=== PATIENT | female | born 1965 | race Asian ===

== ENCOUNTER 2019-03-10 11:52 | Emergency (ER) | payer SELFPAY ==
[~2019-03-10] VITALS: Ht 167.6 cm; Wt 74.8 kg
[2019-03-10] MEDS ORDERED: NKM (12:02)
--- NOTE | 2019-03-10 12:02 | NUR ---
ED Nurse Note: Pt came into the ER s/p falling in the bathtub last night and twisting her right ankle. Right ankle noted to be swollen, bruised, and pt unable to move it. Pt is complaining of 10/10 pain in the area. Non radiating. Pt is A + O x4. Skin warm to touch.
--- NOTE | 2019-03-10 12:15 | Emergency Room Report ---
History of Present Illness General Chief Complaint: Lower Extremity Injury Source: Patient Present Illness HPI 53-year-old female presents to the emergency department complaining of 10 out of 10 in severity pain, swelling, tenderness and bruising to the right foot status post mechanical slip and fall from bathtub last night. Patient denies hitting her head or having a loss of consciousness. Patient denies midline neck or back pain. Reports her pain is exacerbated on attempts to weight-bear ambulate and states she has some minimal relief with rest. Patient denies open wounds, bleeding, or previous injury to this extremity. She denies paresthesias , or loss of gross motor movements of the affected extremity. Allergies: Coded Allergies: No Known Allergies (Unverified , 03/10/19) Patient History Past Medical History: see triage record Past Surgical History: none Pertinent Family History: none Now: No Reviewed Nursing Documentation: PMH: Agreed; PSxH: Agreed Nursing Documentation-PMH Past Medical History: No History, Except For Review of Systems All Other Systems: negative except mentioned in HPI Physical Exam Vital Signs Date Time Temp Pulse Resp B/P (MAP) Pulse Ox O2 Delivery O2 Flow Rate FiO2 03/10/19 11:59 98.4 78 15 139/88 95 Room Air Sp02 EP Interpretation: reviewed, normal General Appearance: no apparent distress, alert, GCS 15, non-toxic Head: normocephalic, atraumatic Eyes: bilateral eye normal inspection, bilateral eye PERRL ENT: hearing grossly normal, normal voice Neck: full range of motion Respiratory: lungs clear, normal breath sounds, speaking full sentences Cardiovascular #1: regular rate, rhythm, normal capillary refill Cardiovascular #2: 2+ dorsalis pedis (R) Musculoskeletal: back normal, normal range of motion, swelling, other - bruising right foot, tender - dorsum of the right foot. Neurologic: alert, oriented x3, responsive, motor strength/tone normal, sensory intact, speech normal, grossly normal Psychiatric: judgement/insight normal Skin: no rash, warm/dry, well hydrated, other - bruising on the right foot. Medical Decision Making PA Attestation Dr. acuña is my supervising Physician whom patient management has been discussed with. Diagnostic Impression: Primary Impression: Metatarsal fracture Qualified Codes: S92.324A - Nondisplaced fracture of second metatarsal bone, right foot, initial encounter for closed fracture ER Course 53-year-old female presents to the emergency department complaining of 10 out of 10 in severity pain, swelling, tenderness and bruising to the right foot status post mechanical slip and fall from bathtub last night. Patient denies hitting her head or having a loss of consciousness. Patient denies midline neck or back pain. Reports her pain is exacerbated on attempts to weight-bear ambulate and states she has some minimal relief with rest. Patient denies open wounds, bleeding, or previous injury to this extremity. She denies paresthesias , or loss of gross motor movements of the affected extremity. Ddx considered but are not limited to Fracture, dislocation, contusion, Sprain/ Strain/Spasm just to name a few. Vital signs: are WNL, pt. is afebrile H&PE are most consistent with musculoskeletal injury will perform imaging to r/ o fractures/dislocations. ORDERS: - X-ray Right Foot 3 views - POSITIVE FOR Metarsal fx's of the 2nd and 3rd toes. No Dislocation, or significant soft tissue injury, per preliminary read in ED, and signed by FINA Eaton, my supervising physician has reviewed, and agrees with my interpretation. ED INTERVENTIONS: -Pt. declines pain meds at this time. - -Patient is provided with crutches and instructed on their use - Short leg Posterior Splint applied to the right foot by shop technician. Pt. remains neurovascularly intact. --Pt. stable for outpatient follow up and is given Orthopedic referral. DISCHARGE: At this time pt. is stable for d/c to home. Will provide printed patient care instructions, and any necessary prescriptions. Care plan and follow up instructions have been discussed with the patient prior to discharge. Other X-Ray Diagnostic Results Other X-Ray Diagnostic Results : X-Ray ordered: Right Foot # of Views/Limited Vs Complete: 3 View Indication: Pain EP Interpretation: Yes FINA Xray: Interpretation reviewed, by supervising MD, and agrees with findings. Interpretation: no dislocation, no soft tissue swelling, other - 2nd and 3rd metatarsal fx's. Impression: Other - abnormal Electronically Signed by: Rukhsana Eaton PA-C Last Vital Signs Date Time Temp Pulse Resp B/P (MAP) Pulse Ox O2 Delivery O2 Flow Rate FiO2 03/10/19 11:59 98.4 78 15 139/88 95 Room Air Status: improved Disposition: HOME, SELF-CARE Condition: Stable Scripts Ibuprofen* (MOTRIN*) 600 Mg Tablet 600 MG ORAL THREE TIMES A DAY, #30 TAB 0 Refills Prov: Rukhsana Eaton 03/10/19 Hydrocodone Bit/Acetaminophen 5-325* (NORCO 5-325*) 1 Each Tablet 1 TAB ORAL Q6H PRN for For Pain, #15 TAB 0 Refills Prov: Rukhsana Eaton 03/10/19 Patient Instructions: Metatarsal Fracture Additional Instructions: Take medications as directed. Follow up with an SAFETY TRAINER in 3-5 days, even if your symptoms have resolved. If symptoms persist MRI may be required at the discretion of your PCP or Ortho Specialist. --Please review list of primary care clinics, if you do not already have a primary care provider who can give you an Orthopedic Referral. Return sooner to ED if new symptoms occur, or current symptoms become worse. Do not drink alcohol, drive, or operate heavy machinery while taking [place] as this may cause drowsiness. - Please note that this Emergency Department Report was dictated using [employer] shredding machine loader technology software, occasionally this can lead to erroneous entry secondary to interpretation by the dictation equipment. Ruhksana Eaton Mar 10, 2019 12:15
--- NOTE | 2019-03-10 12:16 | NUR ---
ED Nurse Note: Notified radiology of xray order.
--- NOTE | 2019-03-10 12:24 | NUR ---
ED Nurse Note: Xray at the bedside.
[2019-03-10] MEDS ORDERED: IBUPROFEN600 MG ORAL (13:27)
[2019-03-10] MEDS ORDERED: NORCO 5-325 TA1 EACH ORAL (13:27)
--- NOTE | 2019-03-10 13:30 | NUR ---
ED Nurse Note: CRUTCHES PROVIDED FOR PT. PT EDUCATED ON PROPER USE OF ASSISTIVE DEVICE. PT ABLE DEMONSTRATE AMBULATION WITH PROPER USE OF CRUTCHES.
--- NOTE | 2019-03-10 13:33 | NUR ---
ED Nurse Note: RADIOLOGY AWARE TO BRING COPY OF CD IMAGES TO PT PRIOR TO DC.
--- NOTE | 2019-03-10 13:54 | Diagnostic Imaging Report ---
Indication: Right foot pain Technique: 3 views right foot Comparison: none Findings: There are degenerative changes of the first metatarsophalangeal joint. There is a fracture of the proximal second metatarsal and probably of the third metatarsal. These fractures are nondisplaced. No other acute fractures. No dislocations. Impression: Positive for nondisplaced fractures of the proximal second and third metatarsals. Findings discussed by phone with Rukhsana Eaton in the emergency room at the time of interpretation
[2019-03-10 13:59] VITALS: BP 135/87
--- NOTE | 2019-03-10 14:00 | NUR ---
ED Nurse Note: CD of xray provided for pt.
--- NOTE | 2019-03-10 14:00 | NUR ---
ER DISCHARGE NOTE: Patient is cleared to be discharged per ERMD, pt is aox4, on room air, with stable vital signs. pt was given dc and prescription instructions, pt was able to verbalize understanding, pt id band removed without complications. pt is able to ambulate with steady gait. pt took all belongings.
== END 2019-03-10 14:00 | disposition home or self-care (01) ==
LOC: EMR 12:45
DX: S92.324A Nondisplaced fracture of second metatarsal bone, right foot, initial encounter for closed fracture (principal); W01.0XXA Fall on same level from slipping, tripping and stumbling without subsequent striking against object, initial encounter; Y92.9 Unspecified place or not applicable
CPT/HCPCS: 29515; 99283